=== PATIENT | male | born 1995 | race Caucasian/White ===

== ENCOUNTER 2023-05-29 11:41 | Emergency (ER) | payer MEDICAID ==
[~2023-05-29] VITALS: Ht 172.7 cm; Wt 138.3 kg
[2023-05-29 12:06] VITALS: BP 132/96; PULSE 64; RESP 16; TEMP 97.9; O2SAT 97
[2023-05-29] MEDS ORDERED: IBUP-2213 PO (12:48)
[2023-05-29] MEDS: IBUPROFEN 800 MG TAB PO ONE (13:02)
[2023-05-29 13:19] VITALS: BP 125/82; PULSE 88; RESP 16; TEMP 98; O2SAT 99
== END 2023-05-29 13:19 | disposition home or self-care (01) ==
LOC: MED 11:41
DX: S80.02XA Contusion of left knee, initial encounter (principal); W01.0XXA Fall on same level from slipping, tripping and stumbling without subsequent striking against object, initial encounter; Y92.89 Other specified places as the place of occurrence of the external cause; Y93.89 Activity, other specified; Y99.0 Civilian activity done for income or pay
CPT/HCPCS: 73562; 99283